=== PATIENT | male | born 1980 | race American Indian/Alaskan Native ===

== ENCOUNTER 2021-04-20 18:40 | Emergency (ER) | payer SELFPAY ==
[2021-04-20 21:11] VITALS: BP 167/96
--- NOTE | 2021-04-20 21:41 | Emergency Department Report ---
ED General Adult HPI - General Chief complaint: Animal Bite Stated complaint: SPIDER BITE LT ARM Time Seen by Provider: 04/20/21 21:37 Source: patient Mode of arrival: Ambulatory Limitations: No Limitations - History of Present Illness Initial comments: 40-year-old -[place] male patient presents with complaints of left arm pain and swelling x3 days. Patient states he believes he was bitten by a spider while outside cutting the bushes. He rates his current pain as a 9/10 in severity and states it is not improving with ibuprofen. He denies any fever/chills/sweats or drainage from the area. No difficulty moving his elbow per patient. -: Sudden - Related Data Previous Rx's Medication Instructions Recorded Last Taken Type Acetaminophen/Codeine [Tylenol 1 tab PO Q8H PRN #10 tab 04/20/21 Unknown Rx /Codeine # 3 tab] Clindamycin [Clindamycin CAP] 300 mg PO Q6H #40 capsule 04/20/21 Unknown Rx Mupirocin [Bactroban 2% OINT] 1 applic TP TID 7 Days #1 tube 04/20/21 Unknown Rx Triamcinolone Acetonide 15 gm TP TID PRN 5 Days #1 04/20/21 Unknown Rx oint...g. Allergies Allergy/AdvReac Type Severity Reaction Status Date / Time No Known Allergies Allergy Unverified 04/20/21 21:03 ED Review of Systems ROS: Stated complaint: SPIDER BITE LT ARM Other details as noted in HPI Constitutional: denies: chills, fever, malaise Musculoskeletal: joint swelling Skin: change in color ED Past Medical Hx - Past Medical History Previous Medical History?: No - Social History Smoking Status: Never Smoker - Medications Home Medications: Home Medications Medication Instructions Recorded Confirmed Last Taken Type Acetaminophen/Codeine [Tylenol 1 tab PO Q8H PRN #10 tab 04/20/21 Unknown Rx /Codeine # 3 tab] Clindamycin [Clindamycin CAP] 300 mg PO Q6H #40 capsule 04/20/21 Unknown Rx Mupirocin [Bactroban 2% OINT] 1 applic TP TID 7 Days #1 tube 04/20/21 Unknown Rx Triamcinolone Acetonide 15 gm TP TID PRN 5 Days #1 04/20/21 Unknown Rx oint...g. ED Physical Exam - General Limitations: No Limitations General appearance: alert, in no apparent distress, obese - Head Head exam: Present: atraumatic, normocephalic - Eye Eye exam: Present: normal appearance - Respiratory Respiratory exam: Absent: respiratory distress - Cardiovascular Cardiovascular Exam: Present: regular rate - Extremities Exam Extremities exam: Present: full ROM, other (Swelling noted to left elbow and forearm with tenderness to palpation; a single pustule noted to the left elbow without fluctuance; full range of motion of the elbow noted) - Neurological Exam Neurological exam: Present: alert, oriented X3, normal gait - Psychiatric Psychiatric exam: Present: normal affect, normal mood - Skin Skin exam: Present: warm, dry, intact, normal color. Absent: rash ED Course Vital Signs 04/20/21 21:04 Temperature 97.8 F Pulse Rate 63 Respiratory 18 Rate Blood Pressure 167/96 O2 Sat by Pulse 99 Oximetry ED Medical Decision Making - Medical Decision Making 40-year-old -[place] male patient presents with complaints of left arm pain and swelling x3 days. Patient states he believes he was bitten by a spider while outside cutting the bushes. He rates his current pain as a 9/10 in severity and states it is not improving with ibuprofen. He denies any fever/chills/sweats or drainage from the area. No difficulty moving his elbow per patient. Pustule without underlying fluctuance noted on exam, however there is surrounding induration and cellulitic changes noted. Will treat for cellulitis secondary to insect bite. Discussed importance of warm compresses in compliance with antibiotics patient to follow-up with primary care in 3 days. Discussed signs and symptoms that should prompt immediate return to the emergency department in detail with patient who verbalized understanding. Critical care attestation.: If time is entered above; I have spent that time in minutes in the direct care of this critically ill patient, excluding procedure time. ED Disposition Clinical Impression: Infected insect bite Disposition: DC-01 TO HOME OR SELFCARE Is pt being admited?: No Condition: Stable Instructions: Skin Abscess, Insect Bite, Adult Prescriptions: Mupirocin [Bactroban 2% OINT] 1 applic TP TID 7 Days #1 tube Clindamycin [Clindamycin CAP] 300 mg PO Q6H #40 capsule Triamcinolone Acetonide 15 gm TP TID PRN 5 Days #1 oint...g. PRN Reason: swellng Acetaminophen/Codeine [Tylenol /Codeine # 3 tab] 1 tab PO Q8H PRN #10 tab PRN Reason: pain Referrals: [facility] [Provider Group] - 3-5 Days Forms: Work/School Release Form(ED)
[2021-04-20] MEDS ORDERED: IBUPROFEN 800 MG TAB PO STA (21:45)
[2021-04-20] MEDS ORDERED: ACETAMINOPHEN 500 MG TAB PO STA (21:45)
== END 2021-04-20 22:30 | disposition home or self-care (01) ==
LOC: ED 18:40
DX: L03.114 Cellulitis of left upper limb (principal); Z79.899 Other long term (current) drug therapy
CPT/HCPCS: 99282